=== PATIENT | female | born 1990 | race Caucasian/White ===

== ENCOUNTER 2024-02-04 23:34 | Emergency (ER) | payer OTHER, SELFPAY ==
[2024-02-04 23:36] VITALS: BP 149/86; PULSE 110; RESP 24; TEMP 36.1; O2SAT 98; BMI 30.3
[2024-02-04 23:41] VITALS: PULSE 112
--- NOTE | 2024-02-04 23:46 | RAD_ITS ---
INDICATION: cp EXAMINATION/TECHNIQUE: X-RAY - XR Chest 1 View COMPARISON: None. FINDINGS: LINES/DEVICES: None. LUNGS: No consolidation, edema or effusion. No pneumothorax. MEDIASTINUM AND CARDIOVASCULAR STRUCTURES: Cardiac silhouette not enlarged. BONES AND SOFT TISSUES: Unremarkable. RAD/Chest 1 View (Portable) IMPRESSION: No radiographic evidence of acute cardiopulmonary disease. Electronically Signed: Raulito Turcios MD at 0:19 EDT ,
--- NOTE | 2024-02-04 23:46 | EKG12_ITS ---
Test Reason : CP Blood Pressure : / mmHG Vent. Rate : 092 BPM Atrial Rate : 092 BPM P-R Int : 142 ms QRS Dur : 070 ms QT Int : 348 ms P-R-T Axes : 003 042 033 degrees QTc Int : 430 ms Normal sinus rhythm Normal ECG Confirmed by Paolo Ramírez ([id number]), editor house organ JOVANI BRAVO ([id number]) on 02/08/2024 10:34:33 AM Referred By: Confirmed By:Paolo Ramírez
--- NOTE | 2024-02-04 23:47 | ED.VIS.CHEST ---
HPI History of Present Illness Chief Complaint: Chest Pain Informant: patient Onset/Context/Timing Onset: Days Narrative Narrative: Patient presents secondary to chest pressure that has been present the past couple days, but worsening today. She does feel that her heart is racing and skipping beats. She also feels short of breath. She does have a history of anxiety. She also has a history of pulmonary embolism in 2019. This occurred . She is no longer on blood thinners. Patient states that she had an anaphylactic reaction to the CT contrast that she was given at that time and did require an EpiPen. 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 [facility] Medical History Abdominal cramping Anxiety Pulmonary embolism Ulcerative colitis Home Medications ?Medication ?Instructions ?Recorded ?Last Taken ?Type apixaban 2.5 mg tablet (Eliquis) 2.5 mg PO BID 11/24/22 Unknown History lorazepam 2 mg tablet 2 mg PO DAILY PRN 11/24/22 Unknown History sulfasalazine 500 mg tablet 0.5 g PO Q6H 11/24/22 Unknown History apixaban 5 mg tablet (Eliquis) 10 mg (2 x 5 mg) PO BID 7 days #28 02/05/24 Unknown Rx tabs Allergy/AdvReac Type Severity Reaction Status Date / Time Iodinated Contrast Media Allergy Intermediate Other Verified 11/24/22 14:33 Family History Father Diabetes HLD (hyperlipidemia) Mother Diabetes Hypertension Afib HLD (hyperlipidemia) Social History Smoking Status: Never smoker alcohol intake: never ROS ROS ED Constitutional Constitutional ED: Denies chills or fever(s) Eyes Eyes: Denies discharge from eye(s) ENT ENT ED: Denies discharge from eye(s), rhinorrhea or sore throat Cardiovascular Cardiovascular: Reports chest pain, palpitations and racing heartbeat Respiratory/Chest Respiratory/Chest: Reports dyspnea; Denies cough Gastrointestinal Gastrointestinal: Denies abdominal pain, nausea or vomiting Musculoskeletal Musculoskeletal: Denies back pain or extremity pain Integumentary Denies Abrasions or rash Neurologic Neurologic: Denies headache(s) or weakness Psychiatric Psychiatric: Reports anxiety; Denies depression Allergic/Immunologic Allergic/Immunologic ED: Denies lip swelling or urticaria EXAM Physical Exam Const Vital Signs: 02/04/24 23:36 02/04/24 23:41 Temperature 97 F L Temperature Source Temporal Pulse Rate 110 H 112 H Respiratory Rate 24 H Blood Pressure 149/86 H Blood Pressure Mean 107 Pulse Ox 98 Oxygen Delivery Method Room Air Positive well nourished and well developed General Appearance ED: well developed HEENT Reports moist mucous membranes Eyes EOMs intact bilaterally Chest Wall inspection of chest normal and palpation of chest normal Resp normal respiratory effort and clear to auscultation bilaterally Cardio regular rhythm Rate: tachycardic GI normal to inspection, nondistended, normoactive bowel sounds and soft to palpation Extremity normal to inspection Neuro oriented x3 and no sensory deficits noted Motor Exam: strength 5/5 throughout Psych mental status grossly normal Skin no rashes or lesions noted Heart Score History: Slightly/Non-Suspicious ECG: Normal Age: </= 45 years Risk Factors: No Risk Factors Troponin: </= Normal Limit Score: 0 MDM MDM MDM Narrative Medical decision making narrative: Patient placed on cardiac catheterization technologist. IV line initiated. EKG obtained to evaluate for cardiac arrhythmia/ischemia. Chest x-ray obtained to evaluate for acute lung pathology, cardiac size, or mediastinal abnormality. Labwork obtained to evaluate for leukocytosis, anemia, and electrolyte derangement. History & Record Review Discussion w/independent historian: Patient Lab Data Attestation: I reviewed the patient's lab results. Labs: Laboratory Results - last 24 hr 02/04/24 23:45 WBC 11.3 H RBC 4.67 Hgb 12.8 Hct 40.5 MCV 86.7 MCH 27.4 MCHC 31.6 L RDW Std Deviation 54.5 H RDW Coeff of Michelle 17.2 H Plt Count 447 MPV 8.5 Immature Gran % (Auto) 0.500 Neut % (Auto) 48.3 Lymph % (Auto) 29.5 Branch % (Auto) 13.4 H Eos % (Auto) 7.1 H Baso % (Auto) 1.2 H Absolute Neuts (auto) 5.4 Absolute Lymphs (auto) 3.32 Nucleated RBC % 0 D-Dimer Quant (PE/DVT) 1.07 H* Sodium 139 Potassium 3.5 Chloride 107 Carbon Dioxide 27.0 Anion Gap 5 BUN 10 Creatinine 0.60 Estim Creat Clear Calc 134.00 Est GFR (MDRD) Af Amer 146 Est GFR (MDRD) Non-Af 120 BUN/Creatinine Ratio 16.6 Glucose 101 Calcium 9.0 Troponin I High Sens < 3 L Serum , Qual NEGATIVE Radiography Chest X-Ray - ED: 1 View, Read by ED Physician, Normal, Heart, Lungs and Mediastinum Diagnostic Testing: Clinical Impression(s) from Imaging Studies Chest X-Ray 02/04/24 23:46 IMPRESSION: No radiographic evidence of acute cardiopulmonary disease. Electronically Signed: Raulito Turcios MD at 0:19 EDT , EKG Initial EKG: Attestation: I personally reviewed and interpreted this EKG as follows: Interpretation: Sinus Rhythm (Sinus rhythm at 92 bpm. No acute ischemia.) Treatment and Re-Evaluation :: Repeat evaluation patient resting comfortably. CBC reveals a white count of 11.3 with 48% neutrophils. Hemoglobin is 12.8. Chemistry studies unremarkable with normal potassium and renal function. Troponin is less than 3. test negative. D-dimer does return elevated at 1.07. Portable chest x-ray reveals no evidence of focal infiltrate per my interpretation. Radiology interpretation reviewed and agrees. EKG is sinus rhythm with no evidence of ischemia. Patient does have an elevated D-dimer with history of pulmonary embolism. She is unable to tolerate IV contrast she has had an anaphylactic reaction to this in the past. I spoke with house manager. We will write an outpatient order for a VQ scan that should print to their printer this morning and hopefully the patient can receive her test today. I will give her a dose of Eliquis now. I will also write her a paper prescription for a 1 week course of Eliquis in case she cannot get the VQ scan performed until Thursday. This has been discussed with the patient and she is in agreement with the plan. Return instructions were provided. Discharge Plan Triage Chief Complaint: Chest Pain ED Provider: Keshia Rojas Dx/Rx/DC Orders Clinical Impression: Chest pain, D-dimer, elevated Instructions: ED Chest Pain, Uncertain Cause Prescriptions: New Eliquis 5 mg tablet 10 mg PO BID 7 Days Qty: 28 0RF No Action Eliquis 2.5 mg tablet 2.5 mg PO BID lorazepam 2 mg tablet 2 mg PO DAILY PRN sulfasalazine 500 mg tablet 0.5 g PO Q6H Rx Instructions: give with food (meal/snack) Other Ambulatory Orders: Quant Lung Perfusion Scan (Routine) Facility: [facility] - Location: [facility] Ordered By: Dr. Keshia Rojas Primary Care Provider: Guillermo Domínguez Referrals: Guillermo Domínguez MD [Primary Care Provider] - 3-5 Days Activity Restrictions/Additional Instructions: As discussed, an order for a VQ scan has been sent for you. I am hoping they will be able to perform your scan today. If not, please fill your Eliquis prescription. This will provide you enough medication to cover you until you can be scanned early next week. Please follow-up with your primary care physician. Return to the ER for worsening symptoms or concerns. Print Language: Korean Disposition Disposition: Home, Self Care
[2024-02-04 23:53] LABS: Absolute Lymphocyte Count 3.32 X10^3/uL (0.83-4.51); Absolute Neutrophil Count 5.4 X10^3/uL (2.0-7.7); Basophil# 0.14 X10^3/uL; Basophil% 1.2 % (0-1); Eosinophils% 7.1 % (0-5); Hematocrit 40.5 % (37-47); Hemoglobin 12.8 g/dL (12.0-15.0); Lymphocyte # 3.32 X10^3/ul (0.83-4.51); Lymphocyte % 29.5 % (19-41); Mean Corp Hgb Conc 31.6 g/dL (32-36); Mean Corpuscular Hgb 27.4 pg (27.0-32.0); Mean Corpuscular Volume 86.7 fL (81-99); Mean Platelet Vol. 8.5 fl (6.2-12.0); Monocyte# 1.51 X10^3/uL; Monocyte% 13.4 % (0-10); NRBC Flagged by Analyzer 0 % (0-5); Neutrophil # 5.43 X10^3/uL (2.7-7.7); Neutrophil % 48.3 % (47-70); POSITIVE DIFFERENTIAL YES; Platelet Count 447 K/mm3 (150-450); RBC Distribution Width CV 17.2 % (11.6-14.6); RBC Distribution Width SD 54.5 fl (35.1-43.9); Red Blood Count 4.67 M/mm3 (4.2-5.4); White Blood Count 11.3 K/mm3 (4.4-11.0)
[2024-02-05] LABS: Differential Indicated SCAN CRITERIA MET
[2024-02-05 00:04] LABS: Internal QC Validated? YES +Cl - CLEAR BKGD; Pregnancy, Serum, hCG Quali. NEGATIVE Negative
[2024-02-05 00:11] LABS: Anion Gap 5 (5-15); BUN 10 mg/dL (7-18); BUN/Creat Ratio 16.6 RATIO (10-20); Chloride 107 mmol/L (98-107); EST Glomerular Filtration Rate 120 mL/min (>60); Est Glom Filt Rate - Afr Amer 146 mL/min (>60); Glucose 101 mg/dL (74-106); Potassium 3.5 mmol/L (3.5-5.1); Sodium Level 139 mmol/L (136-145); Troponin-I HS < 3 pg/mL (3.0-54.0)
[2024-02-05 00:12] LABS: D-Dimer Quantitative (DVT/PE) 1.07 FEU/ug/m (0.27-0.49)
[2024-02-05] MEDS: 0.9% Normal Saline (1000mL) 1,000 ML 150 ML IV (00:18)
[2024-02-05 00:32] LABS: Differential Comment SCANNED
[2024-02-05 00:41] VITALS: BP 122/81; PULSE 90; PULSE 92; RESP 18; RESP 21; TEMP 36.5; O2SAT 97
[2024-02-05] MEDS: APIXABAN 5 MG TABLET 10 MG PO (00:49)
[2024-02-05 09:35] LABS: Pathologist Review Reviewed
== END 2024-02-05 00:50 | disposition home or self-care (01) ==
PROVIDERS: Emergency Provider Emergency Medicine; PCP Internal Medicine; Visit Provider Emergency Medicine
DX: R07.9 Chest pain, unspecified (principal); R79.89 Other specified abnormal findings of blood chemistry; Z86.711 Personal history of pulmonary embolism
CPT/HCPCS: 71045; 80048; 84484; 84703; 85025; 85379; 93005; 99284; J7030; A4216

== ENCOUNTER → 2024-02-08 | Outpatient (CLI) | payer OTHER, SELFPAY ==
--- NOTE | 2024-02-08 10:57 | NM_ITS ---
CLINICAL: 33-year-old female with history of chest discomfort and elevation of the d-dimer and apparent previous pulmonary embolus. VENTILATION-PERFUSION LUNG SCINTIGRAPHY COMPARISON: Plain film chest radiograph report 02/04/2024 FINDINGS: The patient was administered 52.0 mCi 99m Tc DTPA aerosol. The aerosol ventilation study demonstrates normal ventilation defined in the bilateral lung kessler. No segmental or subsegmental ventilatory defects are identified. No central clumping of the aerosol visualized. There is evidence of swallowed aerosol. Following the intravenous administration of 5.7 mCi of 99m Tc MAA, the pulmonary perfusion study reveals uniform perfusion throughout both lung kessler. There are no segmental or subsegmental perfusion defects consistently identified on review of sequential acquisitions-projections. NM/Lung Scan Vent/Perf IMPRESSION: 1. NORMAL 99m Tc DTPA aerosol ventilation/Tc 99m MAA pulmonary perfusion imaging examination, according to PIOPED II interpretive criteria. (Sotsman et al, Radiology 246: 941, 2008 Soearline et al, J Nucl Med 49: 1741, 2008). Electronically Signed: Dave Steven DO at 13:03 EDT ,
== END | disposition home or self-care (01) ==
PROVIDERS: PCP Internal Medicine; Referring Provider Emergency Medicine; Visit Provider Emergency Medicine
DX: R07.89 Other chest pain (principal)
CPT/HCPCS: 78582; A9540; A9567